=== PATIENT | female | born 1990 | race Caucasian/White ===

== ENCOUNTER 2020-08-17 12:00 | Inpatient (IN) | payer MEDICAID ==
[~2020-08-17] VITALS: Ht 170.2 cm; Wt 67.1 kg
[2020-08-20] VITALS (7 sets, daily range): BP systolic 113–132; BP diastolic 69–80
[2020-08-20] MEDS ORDERED: LACTATED RINGERS 1000ML 1,000 ML IV SCH (00:45)
[2020-08-20] MEDS ORDERED: CEFAZOLIN SODIUM 1 GM VIAL IVP PRN (00:45)
[2020-08-20 01:27] LABS: HEMATOCRIT 31.5 % (36-48); MEAN CORPUSCULAR HGB CONC 30.2 g/dL (32.0-36.0); MEAN CORPUSCULAR VOLUME 69.5 fL (79-99); NUCLEATED RED BLOOD CELLS 0.4 % (0.0-0.19); PLATELET COUNT (AUTO) 303 K/uL (130-400); RED BLOOD CELL COUNT(AUTO) 4.53 MIL/uL (4.00-5.50); RED CELL DISTRIBUTION WIDTH 18.8 % (11.0-15.5); WHITE BLOOD COUNT (AUTO) 9.7 K/uL (4.8-10.8)
[2020-08-20] MEDS ORDERED: OXYTOCIN 10 UNIT/1ML 10ML VIAL ONE (01:48)
[2020-08-20] MEDS ORDERED: MORPHINE PF 100MG/10ML AMP IV ONE (01:49)
[2020-08-20] MEDS ORDERED: ONDANSETRON 4MG INJ ONE (01:49)
[2020-08-20] MEDS ORDERED: FENTANYL CITRATE PF 50 MCG/1 ML 2ML VIAL ONE (01:49)
[2020-08-20] MEDS ORDERED: PHENYLEPHRINE HCL 10 MG/ML 1ML VIAL IV ONE (02:10)
[2020-08-20] MEDS ORDERED: OXYTOCIN-LR 20 UNITS/1000 ML 1,000 ML IV ONE (02:52)
[2020-08-20] MEDS ORDERED: OXYTOCIN-LR 20 UNITS/1000 ML 1,000 ML IV PRN (03:00)
[2020-08-20] MEDS ORDERED: 0.9%NACL 10ML VIAL IVP PRN (03:00)
[2020-08-20] MEDS ORDERED: DEXTROSE 5 %-0.45 % NACL 1,000 ML IV PRN (03:00)
[2020-08-20] MEDS ORDERED: ONDANSETRON 4MG INJ IVP PRN ×2 (03:15→09:45)
[2020-08-20] MEDS ORDERED: PROMETHAZINE HCL 25 MG/ML 1ML AMPULE IM PRN (03:15)
[2020-08-20] MEDS ORDERED: NALOXONE HCL 0.4 MG/1 ML ML IVP PRN ×2 (03:15→09:45)
[2020-08-20] MEDS ORDERED: MORPHINE 2 MG SYG ONE (05:03)
[2020-08-20] MEDS: PROMETHAZINE HCL 25 MG/ML 1ML AMPULE IM PRN ×2 (09:15→14:59)
[2020-08-20] MEDS: MEPERIDINE-PF 75 MG/ML SYG IM PRN ×2 (09:15→14:58)
[2020-08-20] MEDS ORDERED: EPHEDRINE SULFATE 50 MG/ML AMPULE IVP PRN (09:45)
[2020-08-20] MEDS ORDERED: DiphenhydrAMINE HCL 50 MG/ML VIAL IVP PRN (09:45)
[2020-08-20] MEDS ORDERED: BISACODYL 10 MG SUPP.RECT RC PRN (16:00)
[2020-08-20] MEDS ORDERED: ACETAMINOPHEN 500 MG TABLET PO PRN (16:00)
[2020-08-20] MEDS ORDERED: DIPH,PERTUSS(ACELL),TET VAC/PF 0.5 ML VIAL IM SCH (16:00)
[2020-08-20] MEDS ORDERED: HYDROCODONE/ACETAMINOPHEN 5/325 MG TAB PO PRN (16:00)
[2020-08-20] MEDS: DOCUSATE SODIUM 100 MG CAP PO SCH (21:04)
[2020-08-20] MEDS: SIMETHICONE 80 MG TAB.CHEW PO PRN (21:04)
[2020-08-21 02:48] VITALS: BP 111/69
[2020-08-21] MEDS ORDERED: IBUPROFEN 800 MG TAB PO SCH ×2 (03:00→20:00)
[2020-08-21 06:12] LABS: HEPATITIS Bs ANTIGEN SCREEN P Negative (Negative)
[2020-08-21 06:39] LABS: HEMATOCRIT 28.4 % (36-48); MEAN CORPUSCULAR HEMOGLOBIN 20.6 pg (27.0-33.0); MEAN CORPUSCULAR HGB CONC 29.6 g/dL (32.0-36.0); MEAN CORPUSCULAR VOLUME 69.6 fL (79-99); NUCLEATED RED BLOOD CELLS 0.2 % (0.0-0.19); RED BLOOD CELL COUNT(AUTO) 4.08 MIL/uL (4.00-5.50); RED CELL DISTRIBUTION WIDTH 18.7 % (11.0-15.5); WHITE BLOOD COUNT (AUTO) 12.8 K/uL (4.8-10.8)
[2020-08-21 07:12] VITALS: BP 124/82
[2020-08-21] MEDS ORDERED: IBUPROFEN 800 MG TAB ONE (09:17)
[2020-08-21] MEDS: DOCUSATE SODIUM 100 MG CAP PO SCH ×2 (09:31→20:19)
[2020-08-21] MEDS: SIMETHICONE 80 MG TAB.CHEW PO PRN ×2 (09:31→20:19)
[2020-08-21] MEDS: IBUPROFEN 800 MG TAB PO SCH ×2 (09:32→16:57)
[2020-08-21 11:28] VITALS: BP 123/70
[2020-08-21 16:06] VITALS: BP 123/67
[2020-08-21] MEDS: ACETAMINOPHEN WITH CODEINE 1 TAB TAB PO PRN ×2 (16:06→20:19)
[2020-08-21 20:20] VITALS: BP 111/67
[2020-08-21 23:55] VITALS: BP 115/67
[2020-08-22] MEDS: IBUPROFEN 800 MG TAB PO SCH ×2 (00:46→08:48)
[2020-08-22 03:51] VITALS: BP 106/60
[2020-08-22 07:24] VITALS: BP 110/73
[2020-08-22] MEDS: SIMETHICONE 80 MG TAB.CHEW PO PRN (08:47)
[2020-08-22] MEDS: DOCUSATE SODIUM 100 MG CAP PO SCH (08:47)
== END 2020-08-22 11:10 | disposition home or self-care (01) | DRG 540 ==
LOC: LDH 08-20 00:37 → WSH 08-20 06:40
PROVIDERS: ADMIT Obstetrics & Gynecology; ATTEND Obstetrics & Gynecology
PROC: 0UB70ZZ Excision of Bilateral Fallopian Tubes, Open Approach (ICD-10-PCS; 2020-08-20)
PROC: 3E0234Z Introduction of Serum, Toxoid and Vaccine into Muscle, Percutaneous Approach (ICD-10-PCS; 2020-08-20)
PROC: 10D00Z1 Extraction of Products of Conception, Low, Open Approach (ICD-10-PCS; principal; 2020-08-20 01:55)
DX: O34.211 Maternal care for low transverse scar from previous cesarean delivery (principal); Z20.822 Contact with and (suspected) exposure to COVID-19; N73.6 Female pelvic peritoneal adhesions (postinfective); O69.81X0 Labor and delivery complicated by cord around neck, without compression, not applicable or unspecified; Z91.041 Radiographic dye allergy status; Z3A.38 38 weeks gestation of pregnancy; Z37.0 Single live birth; Z30.2 Encounter for sterilization; Z23 Encounter for immunization
CPT/HCPCS: 36415; 59510; 85027; 86592; 86850; 86900; 86901; 87340; 88302; 90715; A4344; G0378; J0690; J2175; J2274; J2370; J2405; J2550; J2590; J3010; J7120; U0003